=== PATIENT | female | born 1970 ===

== ENCOUNTER 2018-01-04 07:51 | Emergency (ER) | payer BC ==
[2018-01-04 08:18] VITALS: BP 108/62
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
== END 2018-01-04 09:22 | disposition home or self-care (01) ==
LOC: UCCORT 07:51
DX: Z04.71 Encounter for examination and observation following alleged adult physical abuse (principal); Y08.89XA Assault by other specified means, initial encounter; Y92.531 Health care provider office as the place of occurrence of the external cause; Z88.1 Allergy status to other antibiotic agents; Z88.5 Allergy status to narcotic agent; K21.9 Gastro-esophageal reflux disease without esophagitis; M79.7 Fibromyalgia; F32.9 Major depressive disorder, single episode, unspecified
CPT/HCPCS: 72040; 99213; G0463